=== PATIENT | female | born 1965 | race Caucasian/White ===

== ENCOUNTER 2025-04-29 12:40 | Outpatient (CLI) | payer OTHER, SELFPAY ==
--- NOTE | ~2025-04-29 | MR_ITS ---
MRI of the left knee Clinical history: Pain Technique: Coronal proton density and proton density-weighted images, sagittal proton-density and T2 fat-sat images, and axial proton-density fat-saturated images were acquired. Findings: Anterior and posterior cruciate ligaments are intact. Medial collateral ligament and the la teral collateral ligament complex are intact. Popliteus tendon intact. There is a large radial tear at the posterior root of the medial meniscus. No lateral meniscal tear. Articular cartilage is well preserved throughout the knee. Bone marrow signals are unremarkable. Extensor mechanism is intact. Small joint effusion present. No Ahumada's cyst. Impression: Large radial tear at the posterior root of the medial meniscus. Reviewed, dictated and finalized at location . Impression: Large radial tear at the posterior root of the medial meniscus.
== END 2025-04-29 12:41 | disposition home or self-care (01) ==
PROVIDERS: PCP Orthopaedic Surgery; Visit Provider Orthopaedic Surgery
DX: S83.242A Other tear of medial meniscus, current injury, left knee, initial encounter (principal); X58.XXXA Exposure to other specified factors, initial encounter
CPT/HCPCS: 73721

== ENCOUNTER 2025-10-26 21:43 | Emergency (ER) | payer OTHER, SELFPAY ==
[2025-10-26 21:57] VITALS: BP 160/95; PULSE 104; RESP 24; TEMP 36.3; O2SAT 98
[2025-10-26 23:43] VITALS: BP 142/75; PULSE 97; RESP 20; TEMP 36.3; O2SAT 98
== END 2025-10-27 01:03 | disposition left against medical advice (07) ==
PROVIDERS: PCP Orthopaedic Surgery
DX: R31.9 Hematuria, unspecified (principal)
CPT/HCPCS: 99199